=== PATIENT | female | born 1960 | race Caucasian/White ===

== ENCOUNTER 2017-09-18 21:26 | Emergency (ER) | payer OTHER ==
[2017-09-18 21:38] VITALS: BP 112/72; PULSE 56; TEMP 98.4; BMI 23.9
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
== END 2017-09-19 02:26 | disposition home or self-care (01) ==
LOC: JER 21:26
DX: S00.83XA Contusion of other part of head, initial encounter (principal); S80.02XA Contusion of left knee, initial encounter; S80.01XA Contusion of right knee, initial encounter; W05.0XXA Fall from non-moving wheelchair, initial encounter; Y93.89 Activity, other specified; Y92.128 Other place in nursing home as the place of occurrence of the external cause; Z99.3 Dependence on wheelchair
CPT/HCPCS: 70450-TC; 73560-TC-LT; 73560-TC-RT; 99282-25

== ENCOUNTER 2021-07-17 11:21 | Inpatient (IN) | payer OTHER ==
[2021-07-17 15:47] LABS: BASO % 0.4 % (0-2.0); EOS % 0.9 % (0-4.5); HEMATOCRIT 34.5 % (32.4-45.2); HEMOGLOBIN 11.7 GM/dL (10.7-15.3); LYMPH % 16.2 % (8-40); MCH 30.3 pg (25.7-33.7); MCHC 33.9 g/dl (32.0-36.0); MEAN CELL VOLUME 89.3 fl (80-96); MEAN PLT VOLUME 7.9 fl (7.5-11.1); MONO % 6.7 % (3.8-10.2); NEUT % 75.8 % (42.8-82.8); PLATELET COUNT 234 10^3/uL (134-434); RBC 3.86 M/mm3 (3.60-5.2); RDW 13.7 % (11.6-15.6); WHITE BLOOD COUNT 6.4 K/mm3 (4.0-10.0)
[2021-07-17 15:51] LABS: EPI CELLS >36 /uL (0-25.1); HYALINE CASTS 43 /uL (0-3.1); URINE APPEARANCE TURBID; URINE BACTERIA >9,000 /uL (0-1359); URINE BILIRUBIN NEGATIVE (NEGATIVE); URINE COLOR YELLOW; URINE GLUCOSE (UA) NEGATIVE (NEGATIVE); URINE KETONE TRACE (NEGATIVE); URINE LEUK ESTERASE 2+ (NEGATIVE); URINE NITRITE NEGATIVE (NEGATIVE); URINE PROTEIN 2+ (NEGATIVE); URINE RBC 36 /uL (0-23.9); URINE WBC 358 /uL (0-25.8)
[2021-07-17 16:13] LABS: ALBUMIN 2.9 g/dl (3.4-5.0)
[2021-07-17 16:14] LABS: CALCIUM 8.7 mg/dL (8.5-10.1)
[2021-07-17 16:18] LABS: CREATININE 0.6 mg/dL (0.55-1.3)
[2021-07-17 16:19] LABS: TOT PROT 6.2 g/dl (6.4-8.2)
[2021-07-17] MEDS ORDERED: MINERAL OIL ENEMA 133 ML ENEMA PR ONE (16:34)
[2021-07-17] MEDS ORDERED: MIDAZOLAM HCL 5 MG/1 ML Single Dose Vial IVPUSH ONE (17:00)
[2021-07-17] MEDS ORDERED: MIDAZOLAM HCL 2 MG/2 ML SINGLE DOSE VIAL ONE (17:15)
[2021-07-17] MEDS ORDERED: DOCUSATE SODIUM 100 MG CAPSULE (FP) PO PRN (17:53)
[2021-07-17] MEDS ORDERED: CEFTRIAXONE 1 GM/50 ML BAG ONE (18:25)
[2021-07-17] MEDS: CEFTRIAXONE 1 GM in DEXTROSE 5%-WATER - 50 ML IVPB SCH (18:35)
[2021-07-17] MEDS ORDERED: HEPARIN NA (PORCINE) 5,000 UNITS/ML 1ML VIAL SQ SCH (22:00)
[2021-07-17] MEDS: SENNOSIDES 8.6MG TABLET (FP) PO SCH (23:45)
[2021-07-17] MEDS: INSULIN SLIDING SCALE (NOVOLOG) 1 VIAL SQ SCH (23:55)
[2021-07-18] MEDS: INSULIN SLIDING SCALE (NOVOLOG) 1 VIAL SQ SCH ×4 (06:09→22:13)
[2021-07-18 09:41] LABS: HEMATOCRIT 33.8 % (32.4-45.2); HEMOGLOBIN 11.5 GM/dL (10.7-15.3); MCH 30.5 pg (25.7-33.7); MEAN CELL VOLUME 89.6 fl (80-96); MEAN PLT VOLUME 8.3 fl (7.5-11.1); PLATELET COUNT 251 10^3/uL (134-434); RBC 3.78 M/mm3 (3.60-5.2); RDW 13.5 % (11.6-15.6); WHITE BLOOD COUNT 4.3 K/mm3 (4.0-10.0)
[2021-07-18] MEDS ORDERED: ENOXAPARIN NA (PORCINE) 40 MG/0.4 ML DISP.SYRIN SQ SCH (10:00)
[2021-07-18] MEDS: POLYETHYLENE GLYCOL (HEALTHYLAX) 3350 17 GM PACKET PO SCH (10:07)
[2021-07-18 10:12] LABS: ALBUMIN 3.1 g/dl (3.4-5.0); BLOOD UREA NITROGEN 15.6 mg/dL (7-18); MAGNESIUM 2.1 mg/dL (1.8-2.4)
[2021-07-18 10:15] LABS: CREATININE 0.6 mg/dL (0.55-1.3); PHOSPHOROUS 3.1 mg/dL (2.5-4.9)
[2021-07-18 10:17] LABS: BILIRUBIN,TOTAL 0.9 mg/dL (0.2-1); TOT PROT 6.4 g/dl (6.4-8.2)
[2021-07-18] MEDS ORDERED: cefTRIAXone SODIUM 1 GM VIAL ONE (10:58)
[2021-07-18] MEDS ORDERED: DEXTROSE 5%-WATER - 50 ML IVPB ONE (10:59)
[2021-07-18] MEDS: CEFTRIAXONE 1 GM in DEXTROSE 5%-WATER - 50 ML IVPB SCH (11:08)
[2021-07-18] MEDS ORDERED: KCL 10 MEQ IVPB 10 MEQ/100 ML INFUS.BAG IVPB SCH (14:15)
[2021-07-18] MEDS: D5-1/2NS+30 MEQ KCL - 30 MEQ/1,000 ML INFUS.BAG IV SCH (15:03)
[2021-07-18] MEDS: SENNOSIDES 8.6MG TABLET (FP) PO SCH (22:05)
[2021-07-18] MEDS ORDERED: DIPHTH,PERTUSS(ACELL),TET 0.5 ML DISP.SYRIN IM ONE (23:00)
[2021-07-19] MEDS: D5-1/2NS+30 MEQ KCL - 30 MEQ/1,000 ML INFUS.BAG IV SCH (06:25)
[2021-07-19] MEDS: INSULIN SLIDING SCALE (NOVOLOG) 1 VIAL SQ SCH ×4 (06:33→21:20)
[2021-07-19] MEDS ORDERED: cefTRIAXone SODIUM 1 GM VIAL ONE (09:21)
[2021-07-19] MEDS: CEFTRIAXONE 1 GM in DEXTROSE 5%-WATER - 50 ML IVPB SCH (09:34)
[2021-07-19] MEDS ORDERED: DIPHTH,PERTUSS(ACELL),TET 0.5 ML DISP.SYRIN IM ONE (10:00)
[2021-07-19 10:08] LABS: ALBUMIN 2.8 g/dl (3.4-5.0); BLOOD UREA NITROGEN 18.6 mg/dL (7-18); CO2 29 mmol/L (21-32); GLUCOSE,RANDOM 103 mg/dL (74-106)
[2021-07-19 10:11] LABS: CREATININE 0.6 mg/dL (0.55-1.3); SGOT/AST 13 U/L (15-37); SGPT/ALT 12 U/L (13-61)
[2021-07-19 10:13] LABS: BILIRUBIN,TOTAL 0.7 mg/dL (0.2-1)
[2021-07-19 10:14] LABS: ALK PHOS 78 U/L (45-117)
[2021-07-19 11:46] LABS: CHLORIDE 109 mmol/L (98-107); SODIUM 144 mmol/L (136-145)
[2021-07-19] MEDS: POLYETHYLENE GLYCOL (HEALTHYLAX) 3350 17 GM PACKET PO SCH (12:14)
[2021-07-19] MEDS: SENNOSIDES 8.6MG TABLET (FP) PO SCH (21:20)
[2021-07-20] MEDS: D5-1/2NS+30 MEQ KCL - 30 MEQ/1,000 ML INFUS.BAG IV SCH ×3 (02:36→21:20)
[2021-07-20] MEDS: INSULIN SLIDING SCALE (NOVOLOG) 1 VIAL SQ SCH ×4 (06:10→21:20)
[2021-07-20 10:33] VITALS: BMI 16.2
[2021-07-20] MEDS ORDERED: cefTRIAXone SODIUM 1 GM VIAL ONE (11:20)
[2021-07-20] MEDS ORDERED: DEXTROSE 5%-WATER - 50 ML IVPB ONE (11:20)
[2021-07-20] MEDS: CEFTRIAXONE 1 GM in DEXTROSE 5%-WATER - 50 ML IVPB SCH (11:25)
[2021-07-20] MEDS: POLYETHYLENE GLYCOL (HEALTHYLAX) 3350 17 GM PACKET PO SCH (11:26)
[2021-07-20 14:20] LABS: CALCIUM 9.3 mg/dL (8.5-10.1)
[2021-07-20 14:25] LABS: CREATININE 0.6 mg/dL (0.55-1.3)
[2021-07-20 14:33] LABS: BLOOD UREA NITROGEN 12.6 mg/dL (7-18)
[2021-07-20] MEDS ORDERED: POTASSIUM CHLORIDE TABS 20 MEQ TABLET.ER (FP) PO ONE (20:46)
[2021-07-20] MEDS ORDERED: INSULIN (NOVOLOG) ASPART 100 UNITS/ML 10ML VIAL ONE (20:59)
[2021-07-20] MEDS: SENNOSIDES 8.6MG TABLET (FP) PO SCH (21:12)
[2021-07-21] MEDS: INSULIN SLIDING SCALE (NOVOLOG) 1 VIAL SQ SCH ×4 (06:19→21:32)
[2021-07-21 10:33] LABS: BLOOD UREA NITROGEN 9.8 mg/dL (7-18); CALCIUM 8.6 mg/dL (8.5-10.1); MAGNESIUM 2.1 mg/dL (1.8-2.4)
[2021-07-21 10:37] LABS: CREATININE 0.4 mg/dL (0.55-1.3)
[2021-07-21] MEDS ORDERED: DEXTROSE 5%-WATER - 50 ML IVPB ONE (11:04)
[2021-07-21] MEDS ORDERED: cefTRIAXone SODIUM 1 GM VIAL ONE (11:04)
[2021-07-21] MEDS: POLYETHYLENE GLYCOL (HEALTHYLAX) 3350 17 GM PACKET PO SCH (11:17)
[2021-07-21] MEDS: CLOPIDOGREL BISULFATE 75 MG TABLET (FP) PO SCH (11:17)
[2021-07-21] MEDS: CEFTRIAXONE 1 GM in DEXTROSE 5%-WATER - 50 ML IVPB SCH (11:17)
[2021-07-21] MEDS: D5-1/2NS+30 MEQ KCL - 30 MEQ/1,000 ML INFUS.BAG IV SCH (16:02)
[2021-07-21] MEDS: SENNOSIDES 8.6MG TABLET (FP) PO SCH (21:32)
[2021-07-22] MEDS: D5-1/2NS+30 MEQ KCL - 30 MEQ/1,000 ML INFUS.BAG IV SCH (05:30)
[2021-07-22] MEDS: INSULIN SLIDING SCALE (NOVOLOG) 1 VIAL SQ SCH ×2 (06:06→10:52)
[2021-07-22] MEDS ORDERED: DEXTROSE 5%-WATER - 50 ML IVPB ONE (09:51)
[2021-07-22] MEDS ORDERED: cefTRIAXone SODIUM 1 GM VIAL ONE (09:51)
[2021-07-22] MEDS: CEFTRIAXONE 1 GM in DEXTROSE 5%-WATER - 50 ML IVPB SCH (09:56)
[2021-07-22] MEDS: CLOPIDOGREL BISULFATE 75 MG TABLET (FP) PO SCH (09:56)
[2021-07-22] MEDS: POLYETHYLENE GLYCOL (HEALTHYLAX) 3350 17 GM PACKET PO SCH (09:56)
[2021-07-22 11:04] VITALS: BP 130/68; PULSE 50; TEMP 97.8
== END 2021-07-22 15:16 | DRG 463 ==
LOC: JER 11:21 → JERBED 17:35 → J6S 23:23
PROVIDERS: ADMIT Internal Medicine; ATTEND Family Medicine
DX: N39.0 Urinary tract infection, site not specified (principal); I69.351 Hemiplegia and hemiparesis following cerebral infarction affecting right dominant side; I31.3 Pericardial effusion (noninflammatory); R47.01 Aphasia; I25.10 Atherosclerotic heart disease of native coronary artery without angina pectoris; E78.5 Hyperlipidemia, unspecified; E11.9 Type 2 diabetes mellitus without complications; F01.50 Vascular dementia, unspecified severity, without behavioral disturbance, psychotic disturbance, mood disturbance, and anxiety; S01.81XA Laceration without foreign body of other part of head, initial encounter; W07.XXXA Fall from chair, initial encounter; Y93.89 Activity, other specified; Y92.128 Other place in nursing home as the place of occurrence of the external cause; Y99.8 Other external cause status; K59.00 Constipation, unspecified; Z99.3 Dependence on wheelchair; S80.02XA Contusion of left knee, initial encounter; F03.90 Unspecified dementia, unspecified severity, without behavioral disturbance, psychotic disturbance, mood disturbance, and anxiety
CPT/HCPCS: 36415; 70450-TC; 70486-TC; 71045-TC-FY; 71260-TC; 72125-TC; 74177-TC; 80048; 80053; 81003; 82550; 82962; 83735; 84100; 84443; 84484; 85025; 85027; 87040; 87086; 90715; 93005; 93010; 93306-TC; 93880-TC; 97161-GP; 99285-25; C9803; Q9967; U0003; U0005